=== PATIENT | female | born 1980 | race Caucasian/White ===

== ENCOUNTER 2022-07-14 12:08 | Emergency (ER) | payer BC ==
[2022-07-14] MEDS ORDERED: SODIUM CHLORIDE 0.9% 1,000 ML IV STA (13:14)
[2022-07-14] MEDS ORDERED: ONDANSETRON 4 MG/2 ML VIAL IVP STA (13:14)
[2022-07-14] MEDS ORDERED: LIDOCAINE-MPF 2% 6 ML in SODIUM CHLORIDE 0.9% 50 ML IV STA (13:15)
[2022-07-14] MEDS ORDERED: HYDROmorphone 1 MG/ML CARPUJECT IVP STA (13:15)
[2022-07-14] MEDS ORDERED: KETOROLAC 30 MG/ML VIAL IVP STA (13:15)
[2022-07-14 13:27] LABS: BASOPHILS # (AUTO) 0.1 10^3/uL (0.0-0.1); BASOPHILS % (AUTO) 0.6 %; EOSINOPHILS # (AUTO) 0.4 10^3/uL (0.0-0.7); EOSINOPHILS % (AUTO) 3.8 %; HGB - HEMOGLOBIN 12.9 g/dL (12.0-16.0); LYMPHOCYTES # (AUTO) 1.9 10^3/uL (1.5-3.5); LYMPHOCYTES % (AUTO) 18.3 %; MEAN CORPUSCULAR HGB CONC 32.3 g/dL (32.0-36.0); MEAN CORPUSCULAR VOLUME 80.6 fL (81.0-99.0); MEAN PLATELET VOLUME 9.2 fL (7.9-10.8); MONOCYTES # (AUTO) 0.4 10^3/uL (0.0-1.0); MONOCYTES % (AUTO) 3.6 %; NEUTROPHILS # (AUTO) 7.4 10^3/uL (1.5-6.6); NEUTROPHILS % (AUTO) 73.5 %; PLT - PLATELET COUNT 291 10^3/uL (130-450); RED BLOOD COUNT 4.96 10^6/uL (4.20-5.40); RED CELL DISTRIBUTION WIDTH 13.3 % (12.0-15.0); WHITE BLOOD COUNT 10.1 x10^3/uL (4.8-10.8)
--- NOTE | 2022-07-14 13:30 | ED Physician Documentation ---
History of Present Illness - Stated complaint Stated Complaint: LT FLANK & ARM PX - Chief complaint Chief Complaint: General - History obtained from History obtained from: Patient - History of Present Illness Timing: How many hours ago (1) Pain level max: 10 Pain level now: 8 - Additonal information Additional information: 42-year-old female states that she has a history of kidney stones. About an hour ago she had a sudden onset of left flank pain. States it feels similar to prior kidney stones. Nothing makes it better or worse. No urinary symptoms. No fever. No chills. No cough. No congestion. Denies any possibility of . No chest pain. No shortness of breath. No headache. Her signif icant other states that she had left arm pain but that has now resolved. She is still having the left flank pain. Last kidney stone was about 19 years ago Review of Systems Constitutional: denies: Fever, Chills Respiratory: denies: Cough GI: denies: Vomiting, Diarrhea : denies: Dysuria, Frequency, Hesitancy, Hematuria, Now EGA Skin: denies: Rash Musculoskeletal: denies: Neck pain Neurologic: denies: Focal weakness, Numbness, Headache PD PAST MEDICAL HISTORY - Past Medical History Past Medical History: Yes Other Past Medical History: chronic neck and back pain - Past Surgical History Past Surgical History: Yes Ortho: Spine surgery - Present Medications Home Medications: Ambulatory Orders Medication Instructions Recorded Confirmed Ketorolac [Toradol] 10 mg PO Q6H PRN #20 tablet 07/14/22 Tamsulosin [Flomax] 0.4 mg PO DAILY #14 cap 07/14/22 - Allergies Allergies/Adverse Reactions: Allergies Allergy/AdvReac Type Severity Reaction Status Date / Time No Known Drug Allergies Allergy Verified 07/14/22 12:14 - Living Situation Living Situation: reports: With family Living Arrangement: reports: At home - Family History Family history: reports: Non contributory PD ED PE NORMAL - Vitals Vital signs reviewed: Yes - General General: Alert and oriented X 3, Other (appears in pain) - HEENT HEENT: Atraumatic, PERRL, EOMI, Moist mucous membranes - Neck Neck: Supple, no meningeal sign, No bony TTP - Cardiac Cardiac: RRR, Strong equal pulses - Respiratory Respiratory: No respiratory distress, Clear bilaterally - Abdomen Abdomen: Soft, Non tender, Non distended - Back Back: No CVA TTP, No spinal TTP - Derm Derm: Warm and dry - Extremities Extremities: No edema, No calf tenderness / cord - Neuro Neuro: Alert and oriented X 3, trainer 2-12 intact, No motor deficit, No sensory deficit, Normal speech Eye Opening: Spontaneous Motor: Obeys Commands Verbal: Oriented GCS Score: 15 - Psych Psych: Normal mood, Normal affect Results - Vitals Vitals: Vital Signs - 24 hr 07/14/22 07/14/22 12:14 15:09 Temperature 36.5 C 36.5 C Heart Rate 110 H 88 Respiratory 24 16 Rate Blood Pressure 179/100 H 140/88 H O2 Saturation 100 100 Oxygen O2 Source Room air - Labs Labs: Laboratory Tests 07/14/22 07/14/22 07/14/22 13:21 13:21 14:20 WBC 10.1 RBC 4.96 Hgb 12.9 Hct 40.0 MCV 80.6 L MCH 26.0 L MCHC 32.3 RDW 13.3 Plt Count 291 MPV 9.2 Neut # (Auto) 7.4 H Lymph # (Auto) 1.9 [place] # (Auto) 0.4 Eos # (Auto) 0.4 Baso # (Auto) 0.1 Absolute Nucleated RBC 0.00 Nucleated RBC % 0.0 Sodium 136 Potassium 3.4 L Chloride 100 L Carbon Dioxide 26 Anion Gap 10.0 BUN 19 Creatinine 0.9 Estimated GFR (MDRD) 69 L Glucose 125 H Calcium 9.5 Total Bilirubin 1.3 H AST 21 ALT 17 Alkaline Phosphatase 85 Total Protein 8.1 Albumin 4.1 Globulin 4.0 Albumin/Globulin Ratio 1.0 Lipase 35 Urine Color YELLOW Urine Clarity CLEAR Urine pH 8.0 H Ur Specific [place] 1.015 Urine Protein NEGATIVE Urine Glucose (UA) NEGATIVE Urine Ketones 15 H Urine Occult Blood LARGE H Urine Nitrite NEGATIVE Urine Bilirubin NEGATIVE Urine Urobilinogen 0.2 (NORMAL) Ur Leukocyte Esterase NEGATIVE Urine RBC TNTC H Urine WBC 0-3 Ur Squamous Epith Cells FEW Squamous Urine Bacteria Rare Urine Casts 0-2 Hyaline Casts Ur Microscopic Review INDICATED Urine Culture Comments NOT INDICATED Urine HCG, Qual 07/14/22 14:20 WBC RBC Hgb Hct MCV MCH MCHC RDW Plt Count MPV Neut # (Auto) Lymph # (Auto) [place] # (Auto) Eos # (Auto) Baso # (Auto) Absolute Nucleated RBC Nucleated RBC % Sodium Potassium Chloride Carbon Dioxide Anion Gap BUN Creatinine Estimated GFR (MDRD) Glucose Calcium Total Bilirubin AST ALT Alkaline Phosphatase Total Protein Albumin Globulin Albumin/Globulin Ratio Lipase Urine Color Urine Clarity Urine pH Ur Specific [place] Urine Protein Urine Glucose (UA) Urine Ketones Urine Occult Blood Urine Nitrite Urine Bilirubin Urine Urobilinogen Ur Leukocyte Esterase Urine RBC Urine WBC Ur Squamous Epith Cells Urine Bacteria Urine Casts Ur Microscopic Review Urine Culture Comments Urine HCG, Qual NEGATIVE - Rads (name of study) CT abdomen pelvis Radiology: Final report received, See rad report PD Medical Decision Making - ED course Complexity details: reviewed results, re-evaluated patient, considered differential, d/w patient ED course: 42-year-old female who is found to have a left-sided 3 mm UVJ stone. Pain well controlled with Toradol, Dilaudid and IV lidocaine. She was given IV saline as well. Patient is well-appearing, nontoxic. Afebrile. No evidence of UTI. No evidence of sepsis. Her CBC and ER abdominal panel are otherwise relatively unremarkable. Pain well controlled. We will have her follow-up with her doctor for further care. Will place on Toradol and Flomax for home. Patient counseled regarding signs and symptoms for which I believe and urgent re-evaluation would be necessary. Patient with good understanding of and agreement to plan and is comfortable going home at this time This document was made in part using voice recognition software. While efforts are made to proofread this document, sound alike and grammatical errors may occur. Departure - Departure Disposition: 01 Home, Self Care Clinical Impression: Ureteral stone Condition: Good Instructions: ED Stone Renal W Colic Follow-Up: your,doctor in 1 week [Other] Prescriptions: Tamsulosin [Flomax] 0.4 mg PO DAILY #14 cap Ketorolac [Toradol] 10 mg PO Q6H PRN #20 tablet PRN Reason: back pain Comments: Please follow-up with your doctor for further care. You do have a left-sided 3 mm kidney stone your bladder. This should pass on its own. Continue your pain medication at home. Return if you worsen. There is also a nonobstructing left kidney stone that is 4 mm. Your prescriptions were sent to [facility]. FINDINGS: Image quality: Excellent. ABDOMEN: Lung bases: Lung bases are clear. Heart size is normal. Solid organs: Liver and spleen are normal in size. Gallbladder wall does not appear thickened. Pancreas is normal in contours. No adrenal nodules. There is an obstructing stone seen at the left ureterovesicular junction, as on series 3 image 129 and on series 6 image 46. This stone measures up to 4 mm. Associated mild to moderate left-sided hydroureter and hydronephrosis can be seen. There is a nonobstructing left-sided kidney stone seen, as on series 3 image 57 measuring 3 mm. No nonobstructing right-sided kidney stones are seen. No right-sided hydronephrosis. Peritoneum and bowel: Unenhanced bowel loops demonstrate normal wall thickness and caliber. No free fluid or air. Nodes and vessels: No retroperitoneal or mesenteric adenopathy by size criteria. Aorta and inferior vena cava are normal in caliber. Miscellaneous: No ventral hernias. PELVIS: Genitourinary: Bladder wall thickness is normal. Miscellaneous: No inguinal hernias or adenopathy. Bones: No suspicious bony lesions. No vertebral body compression fractures. This patient has transitional anatomy. For the purposes of this examination, the level with vestigial ribs is considered to be T12. By the summary scheme, the L5 level is transitional and is highly sacralized. There is a rudimentary S1-S2 disc seen. Moderate disc space narrowing is seen at L3-L4 and L4-L5. Mild pectus excavatum deformity is partially seen. IMPRESSION: Obstructing 3 mm stone seen at the left ureterovesicular junction, with associated left-sided hydroureter and hydronephrosis. 4 mm nonobstructing left-sided kidney stone noted. Additional findings: Transitional lumbar anatomy, with a sacralized L5 level Focal lower lumbar spine degenerative change Discharge Date/Time: 07/14/22 15:09
[2022-07-14 13:40] LABS: ALBUMIN 4.1 g/dL (3.2-5.5); BILIRUBIN,TOTAL 1.3 mg/dL (0.2-1.0); CALCIUM 9.5 mg/dL (8.5-10.3); CREATININE 0.9 mg/dL (0.4-1.0); POTASSIUM 3.4 mmol/L (3.5-5.0); TOTAL PROTEIN 8.1 g/dL (6.7-8.2)
--- NOTE | 2022-07-14 13:59 | CT Report ---
PROCEDURE: ABDOMEN/PELVIS WO INDICATIONS: L flank pain, h/o renal stones TECHNIQUE: Noncontrast 5 mm thick sections acquired from the diaphragms to the symphysis. 5 mm coronal and sagi ttal reformats were then performed. For radiation dose reduction, the following was used: automated exposure control, adjustment of mA and/or kV according to patient size. COMPARISON: None. FINDINGS: Image quality: Excellent. ABDOMEN: Lung bases: Lung bases are clear. Heart size is normal. Solid organs: Liver and spleen are normal in size. Gallbladder wall does not appear thickened. P ancreas is normal in contours. No adrenal nodules. There is an obstructing stone seen at the left ureterovesicular junction, as on series 3 image 129 an d on series 6 image 46. This stone measures up to 4 mm. Associated mild to moderate left-sided hydrou reter and hydronephrosis can be seen. There is a nonobstructing left-sided kidney stone seen, as on series 3 image 57 measuring 3 mm. No no nobstructing right-sided kidney stones are seen. No right-sided hydronephrosis. Peritoneum and bowel: Unenhanced bowel loops demonstrate normal wall thickness and caliber. No free fluid or air. Nodes and vessels: No retroperitoneal or mesenteric adenopathy by size criteria. Aorta and inferior vena cava are normal in caliber. Miscellaneous: No ventral hernias. PELVIS: Genitourinary: Bladder wall thickness is normal. Miscellaneous: No inguinal hernias or adenopathy. Bones: No suspicious bony lesions. No vertebral body compression fractures. This patient has transitional anatomy. For the purposes of this examination, the level with vestigial ribs is considered to be T12. By the summary scheme, the L5 level is transitional and is highly sacr alized. There is a rudimentary S1-S2 disc seen. Moderate disc space narrowing is seen at L3-L4 and L4 -L5. Mild pectus excavatum deformity is partially seen. IMPRESSION: Obstructing 3 mm stone seen at the left ureterovesicular junction, with associated left-sided hydrour eter and hydronephrosis. 4 mm nonobstructing left-sided kidney stone noted. Additional findings: Transitional lumbar anatomy, with a sacralized L5 level Focal lower lumbar spine degenerative change Reviewed by: Ever Waggoner MD on 07/14/2022 12:57 PM [facility] Approved by: Ever Waggoner MD on 07/14/2022 12:57 PM [facility] Station ID: [id number]
[2022-07-14 14:39] LABS: BILIRUBIN,URINE NEGATIVE (NEGATIVE); GLUCOSE, URINE (UA) NEGATIVE (NEGATIVE); KETONES,URINE (UA) 15 mg/dL (NEGATIVE); LEUKOCYTE ESTERASE, URINE NEGATIVE (NEGATIVE); NITRITE,URINE NEGATIVE (NEGATIVE); OCCULT BLOOD,URINE LARGE (NEGATIVE); PROTEIN,URINE NEGATIVE (NEGATIVE); UROBILINOGEN,URINE 0.2 (NORMAL) E.U./dL (NORMAL)
[2022-07-14 14:40] LABS: CLARITY,URINE CLEAR (CLEAR); HCG UR QUAL NEGATIVE
[2022-07-14 14:55] LABS: BACTERIA,URINE Rare /HPF (None Seen); CASTS, URINE 0-2 Hyaline Casts /LPF; RBC,URINE TNTC /HPF (0-5); SQUAMOUS EPITHELIAL CELL,UR FEW Squamous (<= Few); WBC,URINE 0-3 /HPF (0-5)
[2022-07-14 15:11] VITALS: BP 140/88
== END 2022-07-14 15:09 | disposition home or self-care (01) ==
LOC: ED 12:08
DX: N13.2 Hydronephrosis with renal and ureteral calculous obstruction (principal); Z87.442 Personal history of urinary calculi
CPT/HCPCS: 36415; 74176; 80053; 81001; 81025; 83690; 85025; 96365; 96375; 99284; 99285; J1170; J7040; 81003; 87086

== ENCOUNTER 2022-12-31 17:50 | Outpatient (CLI) | payer BC | END 2022-12-31 23:59 | disposition critical access hospital (66) | LOC: EMS 17:50 | DX: R42 Dizziness and giddiness (principal); R03.0 Elevated blood-pressure reading, without diagnosis of hypertension; Z77.9 Other contact with and (suspected) exposures hazardous to health | CPT/HCPCS: A0425; A0429 ==

== ENCOUNTER 2022-12-31 18:08 | Emergency (ER) | payer BC ==
--- NOTE | 2022-12-31 18:17 | ED Physician Documentation ---
History of Present Illness - Stated complaint Stated Complaint: EXPOSURE TO UNKNOWN SUBSTANCE - History obtained from History obtained from: Patient - Additonal information Additional information: She was going to the bathroom at [facility]. There were other people in the bathroom and she walked through a cloud, potentially something being smoked. She felt instantly hazy and weird. Mostly better now. This was at 4:30 PM so almost 2 hours ago. PD PAST MEDICAL HISTORY - Past Surgical History Past Surgical History: Yes Ortho: Spine surgery - Present Medications Home Medications: Ambulatory Orders Medication Instructions Recorded Confirmed Ketorolac [Toradol] 10 mg PO Q6H PRN #20 tablet 07/14/22 Tamsulosin [Flomax] 0.4 mg PO DAILY #14 cap 07/14/22 - Allergies Allergies/Adverse Reactions: Allergies Allergy/AdvReac Type Severity Reaction Status Date / Time No Known Drug Allergies Allergy Verified 12/31/22 18:26 - Social History Does the pt smoke?: No Smoking Status: Never smoker PD ED PE NORMAL - Vitals Vital signs reviewed: Yes - General General: Alert and oriented X 3, No acute distress - HEENT HEENT: PERRL, EOMI - Neck Neck: Supple, no meningeal sign, No bony TTP - Neuro Neuro: Alert and oriented X 3, Normal speech Eye Opening: Spontaneous Motor: Obeys Commands Verbal: Oriented GCS Score: 15 - Psych Psych: Normal mood, Normal affect Results - Vitals Vitals: Vital Signs - 24 hr 12/31/22 18:23 Temperature 36.4 C L Heart Rate 117 H Respiratory 17 Rate Blood Pressure 174/130 H O2 Saturation 100 Oxygen O2 Source Room air PD Medical Decision Making - ED course ED course: We discussed testing for specific agents, presume meth or fentanyl based on what people would tend to use in the [facility] bathroom in [place]. We do not have a good fentanyl test right now, but offered to test for meth with the understanding that probably would not change in result which is we will monitor her for a bit. She declined testing. 42-year-old woman presents after an exposure to an unknown substance in the [facility] bathroom. She was observed until a total of 2-1/2 hours after the exposure without ill effect. Blood pressures remained appear., With no history of hypertension. Recheck with her primary care physician was advised. Departure - Departure Disposition: 01 Home, Self Care Clinical Impression: Drug reaction Condition: Good Record reviewed to determine appropriate education?: Yes Comments: Call your doctor to arrange a follow-up appointment, make the next available appointment. In the interim, return anytime if worse or if new symptoms develop. Your blood pressure was elevated today on check into the emergency department. This does not mean that you have hypertension, it is a common phenomenon to come to the emergency department and have elevated blood pressure. I recommend that you see your primary care physician within the week to have it rechecked when you are feeling better.
[2022-12-31 18:31] VITALS: BP 174/130
== END 2022-12-31 19:12 | disposition home or self-care (01) ==
LOC: EDUNIT# → ED 18:08
DX: T50.901A Poisoning by unspecified drugs, medicaments and biological substances, accidental (unintentional), initial encounter (principal); Y92.512 Supermarket, store or market as the place of occurrence of the external cause
CPT/HCPCS: 99283; 99284